=== PATIENT | male | born 1960 | race Caucasian/White ===

== ENCOUNTER 2024-09-10 07:48 | Inpatient (IN) | payer OTHER, SELFPAY ==
[2024-09-09 14:12] VITALS: BP 110/74; BMI 23.7
[2024-09-09 14:36] LABS: % Basophils 0.1 % (0-2); % Eosinophils 0.1 % (0-6); % Immature Granulocytes 0.7 % (0-0.5); % Lymphocytes 6.4 % (20.5-51.1); % Monocytes 10.9 % (1.7-9.3); % Neutrophils 81.8 % (42.2-75.2); Absolute Immature Granulocytes 0.1 10^3/uL (0-0.05); Absolute Lymphocytes 0.5 10^3/uL (1.2-3.4); Absolute Monocytes 0.8 10^3/uL (0.1-0.6); Absolute Neutrophils 6.2 10^3/uL (1.4-6.5); Hematocrit 29.6 % (39.0-52.0); Hemoglobin 10.3 g/dL (13.0-18.0); Mean Corp Hgb Conc. 34.8 g/dL (33.0-37.0); Mean Corpuscular Hgb 32.1 pg (27.0-31.0); Mean Corpuscular Volume 92.2 fL (80.0-94.0); Mean Platelet Volume 9.7 fL (7.4-10.4); Nucleated Red Blood Cells % 0 % (-); Platelet Count 131 10^3/uL (130-400); Red Blood Cell Count 3.21 10^6/uL (4.70-6.10); Red Cell Dist. Width 11.8 % (11.5-14.5); White Blood Cell Count 7.5 10^3/uL (4.8-10.8)
--- NOTE | 2024-09-09 14:38 | ED.GENMED ---
History of Present Illness
General
Chief Complaint: Weakness
Source: patient
Exam Limitations: none
Time Seen by Provider: 09/09/24 14:12
Nursing documentation reviewed up to this point in time: agreed with
History of Present Illness
History of Present Illness:
Patient is a 64-year-old male with past medical history of prostate cancer currently being treated [place] by Dr. Solo for bone cancer presents with pain to right groin since Friday. He was getting into bed and since then has had pain in
his right right hip groin area. He denies any trauma. Patient is currently on by Bicalutamide. He has had radiation in the past.
Patient does have pain all over as well from bony cancer. He is on chronic pain medicine.
reports patient is not been able to get out of bed because of pain in his right hip/groin region.
Past History
Past History
ED Past Medical History: Other (Lyme disease with complete heart block) and Other (Kidney stones, 'phlebitis')
ED Past Surgical History: Orthopedic
Social History
Tobacco: Former smoker
Alcohol: Chronic alcoholic
Drug: None
Personal:
Living: with family
Family History
Family History: Other (Noncontributory)
Review of Systems
Review of Systems
Allergies reviewed?: Yes
All Other Systems: ROS reviewed and negative except as documented in HPI and ROS
Constitutional: Reports no symptoms; Denies fever, fatigue or chills
Musculoskeletal: Reports other (right hip/groin pain )
Skin: Reports no symptoms
Neurological: Reports no symptoms
Psychiatric: Reports no symptoms
Phy Exam
General Physical Exam
General Presentation: no apparent distress
General age: appears stated age
General Skin: warm and dry
General Habitus: normal
General Mental: alert
General Hydration: appears well hydrated
Cardiovascular Exam
Cardiovascular Exam: regular rate/rhythm, no murmur and normal peripheral pulses
Pulmonary Exam
Pulmonary Exam: lungs clear and no respiratory distress
Neurological Exam
Neurological Exam: alert
Musculoskeletal Exam
Musculoskeletal Exam: other (FULL rom to right leg however pt c/o of discomfort )
Course
Orders/Labs/Results
Orders:
Orders
09/09/24 14:27
COVID-19 Antigen Urgent
Source: Nasal Swab
Complete Blood Count/With Diff Urgent
Comprehensive Metabolic Panel Urgent
Influenza A+B Rapid Molecular Urgent
PATRIC Source: Nasal Swab
Specimen Description:
09/09/24 14:31
Electrocardiogram (*1) Urgent
Reason for Study: Fatigue / Weakness
EKG- Treatment ONCE
09/09/24 15:09
Urinalysis Reflex To Culture Urgent
Date Specimen was Collected: 09/09/24
Time Specimen was Collected: 15:08
Urine Drug Abuse Screen Routine
Date Specimen was Collected: 09/09/24
Time Specimen was Collected: 15:04
Comment: added on to ED urine
Urine Microscopic Reflex Cult Urgent
Urine Culture Urgent
PATRIC Source: U
Specimen Description:
Date Specimen was Collected: 09/09/24
Time Specimen was Collected: 15:08
09/09/24 15:30
Femur, Right 2 View [CR Femur - Right Min 2 Vw] Urgent
Comment:
Reason For Exam: pain
Hip, Right 2-3 Views [CR Hip - RT w/wo Pel 2-3 Vw*] Urgent
Comment:
Reason For Exam: pain
Include a pelvis x-ray?: Yes
09/09/24 15:47
Nicotine [Nicoderm Transdermal] 7 mg TRANSDERM NOW STA
09/09/24 17:05
CT Pelvis W/o Iv Contrast Urgent
Comment:
Reason For Exam: pain right hip
09/09/24 19:25
Admit/Transfer Patient As Directed
Co-Sign Provider:
Level of Care: Observation services
Assign to:: Telemetry
Physician / Group: hospitalist
Diagnosis: ambulatory dysfunction
Reason for Telemetry: Other
Other Reason for Telemetry: msas
Date to Stop Telemetry: 09/11/24
Time to Stop Telemetry: 11:00
PRN Pain Medication Management As Directed
May give lesser potent ordered pain med per pt: Yes
preference::
Protocol:: Medication orders for pain may be administered in a
manner that supports deferring to patient preference
when the pt is:
- Requesting an ordered lesser potent pain medication.
Least to most potent pain medications are defined
as: acetaminophen < NSAID < tramadol < opioids
(morphine, oxycodone, hydromorphone).
- Requesting a lesser dose of the same medication IF
ORDERED.
- Requesting a less intrusive route of administration
if both routes are prescribed by the provider (PO <
IV).
09/09/24 19:26
Code Status As Directed
Resuscitation Status: Full Code
09/09/24 20:03
Oxycodone [Roxicodone] 5 mg PO Q4HPRN PRN
09/09/24 20:43
0.9% Sodium Chloride [Nss (Preservative Free)] See Protocol IV PRN PRN
Acetaminophen [Tylenol] 650 mg PO Q4HPRN PRN
Albuterol Nebs [Ventolin Nebules] 2.5 mg INH R Q4HPRN PRN
Apixaban [Eliquis] 5 mg PO BID
Bisacodyl [Dulcolax] 10 mg RECTAL [id number] PRN
Docusate W/Senna [Senokot-S] 1 tablet PO BIDPRN PRN
FOLic ACID [Folvite] 1 mg 0.9% Sodium Chloride 50 ml [Nss] 50 ml IV DAILYPRN
HYDROmorphone [Dilaudid] 0.5 mg IV Q4HPRN PRN
Lorazepam [Ativan] 1 mg IV Q1HPRN PRN
Lorazepam [Ativan] 1 mg PO Q2HPRN PRN
Lorazepam [Ativan] 2 mg IV Q1HPRN PRN
Ondansetron Injectable [Zofran] 4 mg IV Q6HPRN PRN
Polyethylene Glycol Powder [Miralax] 17 grams PO DAILYPRN PRN
Thiamine Injection 200 mg IV Q12
09/09/24 20:43
VTE Contraindication Routine
VTE Mechanical Device Contraindication: Medical Contraindication
Pharmocologic Contraindication: Medical Contraindication
Activity As Directed
Activity Level: With Assistance
Bedside Glucose Monitoring As Directed
Frequency: AC&HS
MSAS SCORE As Directed
MSAS Score 0-4: Repeat MSAS every 2 hours until 0-4 for three consecutive assessments, then every 4 hours x 48
hours.
MSAS Score 5-7: For MILD withdrawl symptoms. Repeat MSAS and RASS every 2 hours
MSAS Score 8-11: For MODERATE withdrawal symptoms. Repeat MSAS and RASS every 1 hour. Consider ICU or IMU
level of care.
MSAS Score > 11: For SEVERE withdrawal symptoms. Repeat MSAS and RASS every 1 hour. Notify provider, consider
ICU level of care.
MSAS Additional Instructions: If no improvement or no decrease in score from severe to moderate within 12
hours, consult psychiatry
MSAS Notify Provider: Notify provider if patient requires more than 10 mg of Lorazepam in eight hour period.
Vital Signs As Directed
Frequency: Per unit guidelines
09/10/24 06:00
Basic Metabolic Panel IN AM
Complete Blood Count/No Diff IN AM
Folate IN AM
Hemoglobin A1c [Glycohemoglobin (HgbA1c)] IN AM
Iron IN AM
Magnesium IN AM
Phosphorus IN AM
Total Iron Binding IN AM
Vitamin B12 IN AM
09/10/24 07:30
Insulin Aspart Corrective Low [Novolog Flexpen-Low Resistance] See Protocol SC AC
09/10/24 08:00
Bicalutamide [Casodex] 50 mg PO DAILY
FOLic ACID [Folvite] 1 mg PO DAILY
Lisinopril [Zestril] 5 mg PO DAILY
09/11/24 11:00
DC Protocol for Telemetry ONCE
09/12/24 20:00
Thiamine HCl [Vitamin B1] 100 mg PO BID
Abnormal Lab Results
09/09/24 09/09/24
14:27 15:09
RBC 3.21 L 10^6/uL
(4.70-6.10)
Hgb 10.3 L g/dL
(13.0-18.0)
Hct 29.6 L %
(39.0-52.0)
MCH 32.1 H pg
(27.0-31.0)
Abs Immat Gran (auto) 0.1 H 10^3/uL
(0-0.05)
Absolute Lymphs (auto) 0.5 L 10^3/uL
(1.2-3.4)
Absolute Monos (auto) 0.8 H 10^3/uL
(0.1-0.6)
Immature Gran % 0.7 H %
(0-0.5)
Neutrophils % 81.8 H %
(42.2-75.2)
Lymphocytes % 6.4 L %
(20.5-51.1)
Monocytes % 10.9 H %
(1.7-9.3)
Sodium 131 L mmol/L
(135-145)
Chloride 92 L mmol/L
(98-107)
Glucose 167 H mg/dl
(70-99)
Alkaline Phosphatase 206 H U/L
(38-126)
Urine Ketones 1+ A
(Negative)
Urine Bilirubin 1+ A
(Negative)
Urine Urobilinogen 3+ A
(Neg - 1+)
Leukocyte Esterase Rfl 1+ A
(Negative)
Urine WBC (Reflex) 11-15 A /HPF
(0-5)
Urine Bacteria (Reflex) Moderate A
(Negative)
Ur Oxycodone Screen Positive H
(Negative)
U Marijuana (THC) Screen Positive H
(Negative)
09/09/24 14:27
09/09/24 14:27
Vital Signs
Initial and Last Documented VS:
Initial Vital Signs
Temp Pulse Resp BP Pulse Ox
98.2 F 107 16 110/74 97
09/09/24 14:12 09/09/24 14:12 09/09/24 14:12 09/09/24 14:12 09/09/24 14:12
Last Documented Vital Signs
Temp Pulse Resp BP Pulse Ox
98.8 F 103 18 119/76 96
09/10/24 03:50 09/10/24 03:50 09/10/24 03:50 09/10/24 03:50 09/10/24 03:50
MDM/Problems Addressed
MDM/Problems Addressed:
Patient is a 64-year-old male with metastatic prostate cancer presents with pain to the right groin and hip. He was moving his leg in bed several days ago and had pain since not been able to bear weight. No obvious deformity mildly discomfort with
range of motion. X-rays questionable fracture upon my review as well as ED physician however formal report negative. Will obtain CAT scan as patient does complain of pain in has not been able to bear weight. Patient rest has not required any pain
medication here in the ER. He is afebrile.
He has pain at this time however with ambulatory dysfunction not being able to bear weight patient will require admission work. Case discussed with admitting hospitalist who is aware that CAT scan is pending
Chronic conditions affecting care:
Metastatic prostate cancer
*Critical Care Note
Total Time (30-74mins, 75-104mins- exclusive of procedures): Not Applicable
ED Attending Note
-
Portions of this chart may have been created with voice recognition software.� Occasional wrong word or��sound alike� substitutions may have occurred due to the inherent limitations of voice recognition software.
Discharge Plan
Departure
Patient Disposition: Admit
Date of Disposition: 09/09/24
Time of Disposition: 19:01
Admit to: Med/Surg
Admit to doctor: hospitalist
Presentation/result/management discussed w/ accepting MD/DO: Hospitalist
Patient with high blood pressure during this ER visit?: No
Condition: Fair
Covid-19: Not Applicable
Discharge Problem:
right hip pain, Ambulatory dysfunction
Interventions
Interventions:
*General Assessment Last Done: 09/09/24 14:12
*Neglect/Abuse Screening Last Done: 09/09/24 14:12
ED- Fall Risk Assessment Last Done: 09/09/24 14:34
*Nursing Disposition Last Done: 09/09/24 20:41
ED- Cardiac Assessment Last Done: 09/09/24 14:34
ED- Neurological Assessment Last Done: 09/09/24 14:34
ED- Pulmonary Assessment Last Done: 09/09/24 14:34
Discharge Date and Time
Discharge Date/Time: 09/09/24 20:41
[2024-09-09 14:52] LABS: COVID-19 Antigen Negative (Negative)
[2024-09-09 15:06] LABS: ALT (SGPT) 18 U/L (0-50); AST (SGOT) 45 U/L (17-59); Alkaline Phosphatase 206 U/L (38-126); Blood Urea Nitrogen 20 mg/dl (9-20); Calcium 8.5 mg/dl (8.4-10.2); Carbon Dioxide 28 mmol/L (22-30); Chloride 92 mmol/L (98-107); Estimated Creatinine Clearance 122 ml/min; Glucose 167 mg/dl (70-99); Potassium 4.5 mmol/L (3.5-5.1); Sodium 131 mmol/L (135-145); Total Bilirubin 1.2 mg/dl (0.2-1.3); Total Protein 6.4 g/dl (6.3-8.2); eGFR > 60.00
--- NOTE | 2024-09-09 15:14 | EDRN ---
Pts left P2 where pt is, and walked into remainder of ER, pts came back and states 'I count only 19 patients in this ER'. I informed pts that she needs to remain in pts room and she cannot go around the ER due to the safety and
privacy of other pts. surgery scheduler and security made aware who came to speak w pts . Pt instructed she must stay in pts room for other pts privacy.
[2024-09-09 15:23] LABS: Urine Albumin Trace (Neg - Trace); Urine Bilirubin 1+ (Negative); Urine Character Clear (Clear); Urine Color Yellow; Urine Glucose Negative (Negative); Urine Ketone 1+ (Negative); Urine Leukocyte 1+ (Negative); Urine Nitrite Negative (Negative); Urine Occult Blood Negative (Negative); Urine Urobilinogen 3+ (Neg - 1+)
[2024-09-09 15:39] LABS: Urine Mucus Moderate; Urine Squamous Cell 0-2 /LPF (Few)
[2024-09-09 15:40] LABS: Urine Bacteria Moderate (Negative); Urine Red Blood Cell 0-2 /HPF (0-2)
[2024-09-09] MEDS: NICODERM TRANSDERMAL 7 MG TRANSDERM (16:00)
[2024-09-09 16:45] VITALS: BP 107/56
--- NOTE | 2024-09-09 16:55 | EDRN ---
Pts coming out of the room multiple times and instructed to please stay in the pts room and not enter the triage area. Pts states 'The snow is getting bad and I'm leaving, he doesn't have his phone because its at home and I'm not
bringing it back for him. He will need a ride home if he is discharged and I'm not going to be able to pick him up. You need to order him an ambulance.' I explained the plan of care and awaiting results of tests to find out what the next step is,
does not want to wait. I explained to an ambulance may be able to be set up but unsure if it will be covered under insurance. states 'An ambulance shouldn't cost me a dime, we didn't have to pay anything when he went from [place] to
[place].' Pts left the ER.
[2024-09-09 19:09] VITALS: BP 117/90
--- NOTE | 2024-09-09 19:17 | HPS.HSE ---
Addendum entered and electronically signed by Kareem Good MD 09/10/24 06:58:
Informed significant order, Ms Abbasi, about the transfer. She would be coming to the hospital early this am to see him prior to the transfer.
Original Note:
Family Physician
-
Family Physician: Sofya Flaherty
Chief Complaint
-
Right-sided hip pain
History of Present Illness
This is a 64-year-old with past medical history significant for prostate cancer status post radiation with metastasis to bone status post multiple rounds of palliative radiation who presents to the emergency department with approximately 3 days of
right-sided hip pain.
Patient on chronic oxycodone. Reports that after moving in bed about 3 nights ago he started having groin pain. He reports the pain is localized to the right inner thigh and radiates down to the legs. No particular fall or injury noted. Denies
any swelling or redness. He reports mild tenderness to palpation. He denies any urinary symptoms including dysuria, hematuria, frequency or incontinence. He does report flank pain which has been chronic. He reports generalized pain that is
migratory in nature. He is currently on bicalutamide. Denies any fevers or chills. Denies any nausea vomiting or diarrhea.
In the emergency department he was afebrile, blood pressure was 107/50 with a pulse of 116 temp 98.2 satting 93% on room air. ECG with sinus tach at 105 and flattened T waves otherwise nonischemic. CBC is unremarkable with mild anemia to 10.3 and
platelet count of 130 but otherwise unremarkable. Sodium 131 electrolytes otherwise unremarkable. BUN/creatinine within normal range. UA mildly positive. Hip x-ray shows no dislocation or fractures. CT of the hip pending.
Medical History
Past Medical History
Past Medical History: Reports Cancer (Prostate cancer status post radiation, mets to bone), HTN and Other (Pulmonary embolism)
Past Surgical History: Reports None
Social History
Tobacco: Non-smoker
Alcohol: Daily
Drug: None
Personal:
Living: With Family
Family History
Family History: Not pertinent
Allergies / Home Medications
Allergies reflects when Allergies were last updated in [facility].
Home Medications with original date entered in [facility]
Allergy/Medication List:
Allergies
Allergy/AdvReac Type Severity Reaction Status Date / Time
Sulfa (Sulfonamide Allergy 'Blotches' Verified 09/09/24 14:23
Antibiotics)
Home Medications
acetaminophen 325 mg tablet 650 mg (2 x 325 mg) PO Q4HPRN PRN FEVER/PAIN ##0 04/01/14
Eliquis 5mg tablet, 5mg PO BID
Percocet 5/325 mg tablet, 1 tablet q 6 hours prn moderate pain
metformin 500mg tablet, 500mg po bid
bicalutamide 50mg tablet, 50mg po daily
Lisinopril 5mg tablet, 5mg po daily
Review of Systems
-
History Source: Patient
Constitutional: Reports No Symptoms
EENT: Reports No Symptoms
Respiratory: Reports No Symptoms
Cardiac: Reports No Symptoms
Abdomen/GI: Reports No Symptoms
: Reports No Symptoms
Musculoskeletal: Reports Joint Pain
Skin: Reports No Symptoms
Neurological: Reports No Symptoms
Hematologic/Lymphatic: Reports No Symptoms
Psych: Reports No Symptoms
Physical Exam
Vital Signs
Vital Signs
Temp Pulse Resp BP Pulse Ox
98.2 F 97 16 117/90 92
09/09/24 14:12 09/09/24 19:09 09/09/24 19:09 09/09/24 19:09 09/09/24 19:09
Physical Exam
General: Pain and Slurred Speech
HEENT: NormoCephalic, Anicteric, Moist mucous membranes and Atraumatic
Respiratory: Clear
Cardiac: S1/S2, Regular Rhythm and Tachycardia
Breast: Deferred by me
GI: Soft, Non Tender, Non Distended and Normal Bowel Sounds
Rectal: Deferred by Provider
Genito-urinary: Deferred by me
Musculoskeletal: No Clubbing, No Cyanosis and No Edema
Skin: Warm
Neuro: AO x 3 and Nonfocal/grossly intact
Hematologic/Lymphatic: No Lymphadenopathy
Psych: Calm
Laboratory Results
-
09/09/24 14:27
09/09/24 14:27
Laboratory Results
Total Bilirubin 1.2 mg/dl (0.2-1.3) 09/09/24 14:
AST 45 U/L (17-59) 09/09/24 14:
ALT 18 U/L (0-50) 09/09/24 14:
Alkaline Phosphatase 206 U/L (38-126) H 09/09/24 14:27
Data Reviewed
-
Diagnostic Radiology: Report Reviewed by me
Medical Tests (Nuc Med, Echo, EKG etc): Image Personally Visualized and interpreted
Old Records: Reviewed
Impression/Plan
-
IMPRESSION:
64 y.o male with h/o metastatic prostate cancer here with right groin/hip pain radiating to the legs that started abruptly about 3 nights previously without any known trauma. No weakness, numbness or tingling. No incontinence of the bladder or
bowel. History suggestive of radicular but cannot rule out occult fracture given metastatic prostate ca with bone mets. Unable to hold weight from pain.
Known slurred speech that started abruptly a few years ago. No diagnosis of stroke, ICH or IC mets. No known h/o seizures.
PLAN:
1. Hip pain w/ ambulatory dysfunction - Unclear etiology, radicular versus mets vs occult fracture.
- admit to obs
- CT hip pending -> {Pathologic avulsion fracture of the proximal right femur lesser trochanter. Associated soft tissue/intramuscular hematomas in the anterior right groin.}
- bedrest for now
- npo except meds, ortho consult
- pain control with dilaudid in addition to oral pain regimen
- PT eval
2. PE - prior VTE
- continue eliquis 5 bid
3. HTN
- patient reports lisinopril but unknown dose, will start at 5 pending further history from family
4. DM II - on metformin at home
- hold x 48 hours
- sliding scale for now
5. ETOH dependence - Has 3 shots daily. Also reports beer intake but does not specify. Denies prior withdrawal. Last drink today.
- low risk msas
- telemetry monitoring
6. Hyponatremia - Na 131. Suspect 2/2 etoh and pain. No evidence of hypovolemia on examination
- monitor for now
DVT PPX - on eliquis 5 bid
Code status - full code
Addendum -
D/W Dr. Kaplan of Orthopedics. He read the Ct scan and was concern for pathological fracture of the less trochanter as well as the femoral neck. Given history of metastatic prostate Ca to bone and prior radiation he thought ideally his oncologist
is working with an orthopaedic oncologist since he had known metastatic lesions in his proximal femur as well as numerous other locations. Treatment should be handled by an orthopedic oncologist. However patient has no clear history of orthopedic
oncologic f/u.
Recommends transfer to a center with an interdisciplinary oncology team that includes an orthopaedic oncologist because it goes beyond the scope of practice at .
- continue [id number] to the RLE
- transferred to [place] and accepted by Dr. REID, now awaiting a bed
- called to inform significant order but she was not available and no answering service provided
--- NOTE | 2024-09-09 20:03 | EDRN ---
Pt upset his urinal lid does not close, pt given a new urinal. Pt states 'you are late for my pain medicine, the black man said he I could get it and its your fault its late!' Pt agitated and thrashing himself in the bed. I informed pt that he has
no medications ordered on the ER side. I informed pt that I would look into it and see if I could process the transfer order for oxycodone.
[2024-09-09] MEDS: ROXICODONE 5 MG PO (20:12)
[2024-09-09 20:57] VITALS: BP 128/76
[2024-09-09 20:59] VITALS: BMI 23.2
[2024-09-09] MEDS: ELIQUIS 5 MG PO (21:32)
[2024-09-09] MEDS: THIAMINE INJECTION 200 MG IV (21:32)
[2024-09-09 21:47] LABS: Glucose - Point of Care 166 mg/dl (70-99)
[2024-09-09] MEDS: LR 1000 IV (22:13)
[2024-09-09] MEDS: DILAUDID 0.5 MG IV (22:25)
[2024-09-09 23:14] LABS: Amphetamines Negative (Negative); Barbiturates Negative (Negative); Benzodiazepines Negative (Negative); Buprenorphine Negative (Negative); Cocaine Negative (Negative); Marijuana Positive (Negative); Methadone Negative (Negative); Methamphetamines Negative (Negative); Opiates Negative (Negative); Phencyclidine Negative (Negative)
[2024-09-09 23:15] LABS: Tricyclic Antidepressants Negative (Negative)
[2024-09-09 23:40] VITALS: BP 109/78
[2024-09-09 23:46] LABS: Fentanyl, Urine Negative (Negative)
[2024-09-10 00:16] LABS: Glucose - Point of Care 247 mg/dl (70-99)
[2024-09-10] MEDS: NOVOLOG FLEXPEN-LOW RESISTANCE 2 UNITS SC (00:39)
--- NOTE | 2024-09-10 01:49 | PTCARENOTE ---
Updated report given to Jerman No bed at present . Will alert us when one is available.
[2024-09-10] MEDS: DILAUDID 0.5 MG IV ×2 (03:33→09:58)
[2024-09-10 03:50] VITALS: BP 119/76
[2024-09-10 06:07] LABS: Glucose - Point of Care 161 mg/dl (70-99)
[2024-09-10] MEDS: NOVOLOG FLEXPEN-LOW RESISTANCE 1 UNITS SC ×3 (06:11→17:49)
[2024-09-10 07:00] VITALS: BP 123/78
--- NOTE | 2024-09-10 08:26 | W.PN.UPDATE ---
Update Note
Progress Note Update
64-year-old male with history of metastatic cancer involving the bilateral proximal femur with acute onset of right hip pain after moving in bed. Radiographs show avulsion of the lesser trochanter and independent review of attending Dr. Kaplan
with impacted femoral neck fracture. Given the metastatic involvement of a pathologic fracture that may require fixation patient was recommended for transfer to a comprehensive oncologic care team including an orthopedic oncologist. Discussed with
patient who verified understanding. Nonweightbearing to right lower extremity; pending transfer
[2024-09-10] MEDS: FOLVITE 1 MG PO (08:27)
[2024-09-10] MEDS: ZESTRIL 5 MG PO (08:28)
[2024-09-10] MEDS: THIAMINE INJECTION 200 MG IV ×2 (08:28→21:17)
[2024-09-10] MEDS: CASODEX 50 MG PO (08:28)
[2024-09-10 08:44] LABS: Hemoglobin 9.9 g/dL (13.0-18.0); Mean Corp Hgb Conc. 35.4 g/dL (33.0-37.0); Mean Corpuscular Hgb 32.6 pg (27.0-31.0); Mean Corpuscular Volume 92.1 fL (80.0-94.0); Platelet Count 125 10^3/uL (130-400); Red Blood Cell Count 3.04 10^6/uL (4.70-6.10); Red Cell Dist. Width 12.1 % (11.5-14.5); White Blood Cell Count 5.9 10^3/uL (4.8-10.8)
[2024-09-10 09:25] LABS: Blood Urea Nitrogen 14 mg/dl (9-20); Calcium 9.1 mg/dl (8.4-10.2); Carbon Dioxide 27 mmol/L (22-30); Chloride 91 mmol/L (98-107); Estimated Creatinine Clearance > 125 ml/min; Glucose 167 mg/dl (70-99); Iron 47 ug/dl (49-181); Magnesium 1.3 mg/dl (1.6-2.3); Phosphorus 3.4 mg/dl (2.5-4.5); Potassium 4.1 mmol/L (3.5-5.1); Sodium 130 mmol/L (135-145); eGFR > 60.00
[2024-09-10 09:34] LABS: Percent Saturation 16 % (20-50); Total Iron Binding Capacity 286 ug/dl (261-462)
--- NOTE | 2024-09-10 10:06 | W.PN.HOSP.TC ---
Today's Communication/Plan
-
Transfer to [facility] when bed available
Assessment / Plan
Assessment / Plan
IMPRESSION:
64 y.o male with h/o metastatic prostate cancer here with right groin/hip pain radiating to the legs that started abruptly about 3 nights previously without any known trauma. No weakness, numbness or tingling. No incontinence of the bladder or
bowel. History suggestive of radicular but cannot rule out occult fracture given metastatic prostate ca with bone mets. Unable to hold weight from pain.
Known slurred speech that started abruptly a few years ago. No diagnosis of stroke, ICH or IC mets. No known h/o seizures.
PLAN:
Acute right hip pain with ambulatory dysfunction-nontraumatic
Patient with multiple bony mets from prostate cancer.
CT imaging shows an avulsion fracture of the right greater trochanter and as well as a impacted femoral neck fracture according to orthopedics.
Recommendation is for transfer to tertiary care center as it is best managed by oncologist orthopedic team. Patient has been accepted to [facility]-await bed availability.
Nonweightbearing on the right leg For now. Continue with pain management.
PE - prior VTE
-On eliquis 5 bid-on hold for surgery
HTN
- patient reports lisinopril but unknown dose, will start at 5 pending further history from family
DM II - on metformin at home
- hold metformin
- sliding scale for now
ETOH dependence - Has 3 shots daily. Also reports beer intake but does not specify. Denies prior withdrawal. Last drink today.
- low risk msas
- telemetry monitoring
-No evidence of alcohol withdrawal syndrome currently
Hyponatremia - Na 131. Suspect 2/2 etoh and pain. No evidence of hypovolemia on examination
- monitor for now
-Check urine lites and depending fluid restrict and treat
Hypomagnesemia-replete
DVT PPX -sequential teds
Code status - full code
Total time spent on today's encounter was 52 minutes which included time spent in counseling the patient/family regarding diagnosis and treatment plan as listed above, goals of care, and symptom management. Case was discussed with nursing staff,
specialists, and care coordinators/case management. All labs and imaging personally reviewed by me. Remainder the time spent in detailed review of previous records, lab data, imaging, and other medical provider documentation.
Addendum -
Dr Good D/W with Dr. Kaplan of Orthopedics. He read the Ct scan and was concern for pathological fracture of the less trochanter as well as the femoral neck. Given history of metastatic prostate Ca to bone and prior radiation he thought
ideally his oncologist is working with an orthopaedic oncologist since he had known metastatic lesions in his proximal femur as well as numerous other locations. Treatment should be handled by an orthopedic oncologist. However patient has no clear
history of orthopedic oncologic f/u.
Recommends transfer to a center with an interdisciplinary oncology team that includes an orthopaedic oncologist because it goes beyond the scope of practice at .
- continue [id number] to the RLE
- transferred to [place] and accepted by Dr. REID, now awaiting a bed
- called to inform significant order but she was not available and no answering service provided
Anticipated Discharge: Today
Subjective/Interval History
-
Date of Service: September 10, 2024
Patient with chronic pain from his bony mets ,on oral opiates at home now presented with a right hip fracture. Complains of moderate to severe pain from his right hip area. Currently getting IV Dilaudid.
Objective Data
-
Labs:
Laboratory Results
09/10/24
08:16
WBC 5.9
Hgb 9.9 L
Hct 28.0 L
Plt Count 125 L
Sodium 130 L
Potassium 4.1
Chloride 91 L
Carbon Dioxide 27
BUN 14
Creatinine 0.5 L
Glucose 167 H
Calcium 9.1
Vital Signs:
Vital Signs
Temp Pulse Resp BP Pulse Ox
99.8 F 104 18 123/78 95
09/10/24 07:00 09/10/24 07:00 09/10/24 07:00 09/10/24 07:00 09/10/24 07:00
I&O
09/09/24 09/10/24 09/11/24
06:59 06:59 06:59
Intake Total 800 / 800
Output Total 200 / 200
Balance 600 / 600
Review of Systems
-
Constitutional: Denies Fever
EENT: Denies Sore Throat
Respiratory: Denies Cough or Trouble Breathing
Cardiac: Reports Chest Pain (Bony mets)
Abdomen/GI: Denies Abdominal Pain, Nausea or Vomiting
Musculoskeletal: Reports Joint Pain (Back pain chronic)
Neuro: Denies Dizzy
Physical Exam
-
General: No Apparent Distress
HEENT: Moist Mucous Membranes
Respiratory: Clear to Auscultation (On anterior auscultation)
Cardiac: Regular Rhythm and S1/S2
GI: Soft, Nontender, Nondistended and Normal Bowel Sounds
Musculoskeletal: No Edema
Neuro: AO x 3
Psych: Calm
Data Reviewed
-
Labs: Labs Reviewed by me
[2024-09-10 10:09] LABS: Hepatitis C Antibody Negative (Negative)
[2024-09-10 10:26] LABS: Folate 18.5 ng/ml (2.76-20); Vitamin B12 546 pg/ml (239-931)
[2024-09-10 10:39] LABS: Glycohemoglobin (HgbA1c) 7.3 % (4.0-5.6)
[2024-09-10 11:00] VITALS: BP 115/76
[2024-09-10] MEDS: LR 1000 IV (11:38)
[2024-09-10] MEDS: MAGNESIUM SULFATE 50 IV (11:39)
[2024-09-10 11:59] LABS: Urine Sodium 41 mmol/L (30-90)
[2024-09-10 12:05] LABS: Glucose - Point of Care 194 mg/dl (70-99)
[2024-09-10 13:06] LABS: Osmolality Urine 564 mOsm/kg (300-900)
--- NOTE | 2024-09-10 14:24 | CM ---
Pt seen bedside. Initial assessment completed. Admitted for right-sided hip pain.
Pt reports that he lives w/ sig other and her son in a 3STH- 2 steps from the porch and 1 to enter in the home
Pt uses walker to ambulate. Has additional grab bars, shower chair and raised toilet seat in the bathroom for support
Pt recently at [facility] for rehab. Pt stated he only stayed for 2 hours as he did not like the facility and asked his sig other to pick him up.
Denies VN/PT, OP therapy in the past
Address, point of contact and insurance verified
PCP: Dr. Flaherty
Pharmacy: [facility]
Pt currently pending transfer to [facility] when bed available
Plan: Transfer to [facility] when bed is available
[2024-09-10 15:00] VITALS: BP 101/69
[2024-09-10] MEDS: NICODERM TRANSDERMAL 14 MG TRANSDERM (15:32)
[2024-09-10] MEDS: DILAUDID 1 MG IV ×2 (15:33→21:58)
[2024-09-10 17:27] LABS: Glucose - Point of Care 155 mg/dl (70-99)
[2024-09-10 19:00] VITALS: BP 110/75
[2024-09-10 22:07] LABS: Glucose - Point of Care 179 mg/dl (70-99)
[2024-09-10 23:00] VITALS: BP 101/67
[2024-09-11 03:00] VITALS: BP 123/71
[2024-09-11] MEDS: DILAUDID 1 MG IV ×4 (03:26→18:38)
[2024-09-11] MEDS: LR IV (03:33)
[2024-09-11 07:02] LABS: Hematocrit 27.8 % (39.0-52.0); Hemoglobin 9.6 g/dL (13.0-18.0); Mean Corp Hgb Conc. 34.5 g/dL (33.0-37.0); Mean Corpuscular Volume 92.7 fL (80.0-94.0); Mean Platelet Volume 9.8 fL (7.4-10.4); Platelet Count 137 10^3/uL (130-400)
[2024-09-11 07:22] LABS: Blood Urea Nitrogen 10 mg/dl (9-20); Calcium 8.8 mg/dl (8.4-10.2); Carbon Dioxide 32 mmol/L (22-30); Chloride 93 mmol/L (98-107); Estimated Creatinine Clearance > 125 ml/min; Glucose 166 mg/dl (70-99); Magnesium 1.4 mg/dl (1.6-2.3); Potassium 4.6 mmol/L (3.5-5.1); Sodium 133 mmol/L (135-145); eGFR > 60.00
[2024-09-11 07:30] VITALS: BP 110/76
[2024-09-11 07:35] LABS: Glucose - Point of Care 159 mg/dl (70-99)
[2024-09-11] MEDS: NICODERM TRANSDERMAL 14 MG TRANSDERM (08:21)
[2024-09-11] MEDS: CASODEX 50 MG PO (08:22)
[2024-09-11] MEDS: ZESTRIL 5 MG PO (08:22)
[2024-09-11] MEDS: FOLVITE 1 MG PO (08:22)
[2024-09-11] MEDS: THIAMINE INJECTION 200 MG IV ×2 (08:22→19:55)
[2024-09-11] MEDS: NOVOLOG FLEXPEN-LOW RESISTANCE 1 UNITS SC ×3 (08:23→18:04)
[2024-09-11 11:30] VITALS: BP 118/75
[2024-09-11 11:37] LABS: Glucose - Point of Care 166 mg/dl (70-99)
--- NOTE | 2024-09-11 11:37 | W.PN.HOSP.TC ---
Today's Communication/Plan
-
DC to [facility] when bed is available
Assessment / Plan
Assessment / Plan
IMPRESSION:
64 y.o male with h/o metastatic prostate cancer here with right groin/hip pain radiating to the legs that started abruptly about 3 nights previously without any known trauma. No weakness, numbness or tingling. No incontinence of the bladder or
bowel. History suggestive of radicular but cannot rule out occult fracture given metastatic prostate ca with bone mets. Unable to hold weight from pain.
Known slurred speech that started abruptly a few years ago. No diagnosis of stroke, ICH or IC mets. No known h/o seizures.
PLAN:
Acute right hip pain with ambulatory dysfunction-nontraumatic
Patient with multiple bony mets from prostate cancer.
CT imaging shows an avulsion fracture of the right greater trochanter and as well as a impacted femoral neck fracture according to orthopedics.
Recommendation is for transfer to tertiary care center as it is best managed by oncologist orthopedic team. Patient has been accepted to [facility]-await bed availability.
Nonweightbearing on the right leg For now. Continue with pain management. Had laxative regimen
PE - prior VTE
-On eliquis 5 bid-on hold for surgery
HTN
- patient reports lisinopril but unknown dose, will start at 5 pending further history from family
DM II - on metformin at home
- hold metformin
- sliding scale for now
ETOH dependence - Has 3 shots daily. Also reports beer intake but does not specify. Denies prior withdrawal. Last drink today.
- low risk msas
- telemetry monitoring
-No evidence of alcohol withdrawal syndrome currently
Hyponatremia - Na 131. Suspect 2/2 etoh and pain. No evidence of hypovolemia on examination
- monitor for now
- urine lites suggest presence of excessive ADH possibly from pain. Will place him on fluid restriction
DVT PPX -sequential teds
Code status - full code
Addendum -
Dr Good D/W with Dr. Kaplan of Orthopedics. He read the Ct scan and was concern for pathological fracture of the less trochanter as well as the femoral neck. Given history of metastatic prostate Ca to bone and prior radiation he thought
ideally his oncologist is working with an orthopaedic oncologist since he had known metastatic lesions in his proximal femur as well as numerous other locations. Treatment should be handled by an orthopedic oncologist. However patient has no clear
history of orthopedic oncologic f/u.
Recommends transfer to a center with an interdisciplinary oncology team that includes an orthopaedic oncologist because it goes beyond the scope of practice at .
- continue [id number] to the RLE
- transferred to [facility] and accepted by Dr. REID, now awaiting a bed
- called to inform significant order but she was not available and no answering service provided
Anticipated Discharge: Today
Subjective/Interval History
-
Date of Service: September 11, 2024
Pain from right leg persists and with increased dose of Dilaudid pills okay.
Constipated but passing gas. Hesitant to go on laxative regimen as he is concerned how is going to get on commode. advised to use bedpan but to go on laxative regimen to prevent complications of constipation.
Objective Data
-
Labs:
Laboratory Results
09/11/24
06:28
WBC 5.0
Hgb 9.6 L
Hct 27.8 L
Plt Count 137
Sodium 133 L
Potassium 4.6
Chloride 93 L
Carbon Dioxide 32 H
BUN 10
Creatinine 0.5 L
Glucose 166 H
Calcium 8.8
Vital Signs:
Vital Signs
Temp Pulse Resp BP Pulse Ox
98.6 F 99 16 110/76 95
09/11/24 07:30 09/11/24 07:30 09/11/24 07:30 09/11/24 07:30 09/11/24 07:30
I&O
09/10/24 09/11/24 09/12/24
06:59 06:59 06:59
Intake Total 800 / 800 600 / 600
Output Total 200 / 200 150 / 150
Balance 600 / 600 450 / 450
Review of Systems
-
Respiratory: Denies Trouble Breathing
Cardiac: Denies Chest Pain
Abdomen/GI: Denies Abdominal Pain, Nausea or Vomiting
Neuro: Denies Dizzy
Physical Exam
-
General: Comfortable
Respiratory: Non Labored Respirations; Negative Accessory Resp Muscle Use
Cardiac: Regular Rhythm and S1/S2
GI: Soft, Nontender, Nondistended and Normal Bowel Sounds
Neuro: AO x 3
Psych: Calm
Data Reviewed
-
Labs: Labs Reviewed by me
--- NOTE | 2024-09-11 12:10 | CM ---
CM reviewed chart, transfer to [facility] when bed becomes available.
Plan: Transfer to [facility] when bed is available
[2024-09-11 15:25] VITALS: BP 119/76
[2024-09-11 16:42] LABS: Glucose - Point of Care 154 mg/dl (70-99)
[2024-09-11 19:55] VITALS: BP 101/70
[2024-09-11 21:30] LABS: Glucose - Point of Care 220 mg/dl (70-99)
[2024-09-11] MEDS: ROXICODONE 10 MG PO (22:52)
[2024-09-11 23:47] VITALS: BP 104/69
[2024-09-12] MEDS: DILAUDID 1 MG IV (00:23)
== END 2024-09-12 00:35 | disposition short-term general hospital (02) | DRG 543 ==
LOC: 4 WEST ACU 07:48
PROVIDERS: Nurse Practitioner; ADMITTING PHYSICIAN Internal Medicine; ATTENDING PHYSICIAN Internal Medicine; EMERGENCY PHYSICIAN Emergency Medicine; FAMILY PHYSICIAN Family Medicine
DX: M84.551A Pathological fracture in neoplastic disease, right femur, initial encounter for fracture (principal); C79.51 Secondary malignant neoplasm of bone; E87.1 Hypo-osmolality and hyponatremia; I44.2 Atrioventricular block, complete; Z85.46 Personal history of malignant neoplasm of prostate; I10 Essential (primary) hypertension; E11.9 Type 2 diabetes mellitus without complications; Z79.84 Long term (current) use of oral hypoglycemic drugs; F10.20 Alcohol dependence, uncomplicated; I80.9 Phlebitis and thrombophlebitis of unspecified site; Z87.442 Personal history of urinary calculi; Z79.01 Long term (current) use of anticoagulants; Z86.711 Personal history of pulmonary embolism; Z86.718 Personal history of other venous thrombosis and embolism; Z87.891 Personal history of nicotine dependence; Z92.3 Personal history of irradiation; D63.0 Anemia in neoplastic disease
CPT/HCPCS: 72192; 73502; 73552; 80048; 80053; 80306; 80307; 81003; 81015; 82607; 82746; 82962; 83036; 83540; 83550; 83735; 83935; 84100; 84300; 85025; 85027; 86803; 87077; 87086; 87186; 87502; 87811; 93005; 99285

== ENCOUNTER → 2024-10-21 09:21 | Outpatient (REF) | payer OTHER, SELFPAY | LOC: PAVMRI 09:21 | PROVIDERS: ATTENDING PHYSICIAN Internal Medicine Medical Oncology; FAMILY PHYSICIAN Family Medicine; PRIMARYCARE PHYSICIAN Family Medicine | DX: C61 Malignant neoplasm of prostate (principal); C79.51 Secondary malignant neoplasm of bone; R51.9 Headache, unspecified | CPT/HCPCS: 70553; A9575 ==

== ENCOUNTER 2024-10-25 22:14 | Inpatient (IN) | payer OTHER, SELFPAY ==
[2024-10-25] VITALS (10 sets, daily range): BP systolic 100–159; BP diastolic 67–97; BMI 23.7; BMI 22.4
--- NOTE | 2024-10-25 17:01 | ED.GENMED ---
ED Provider Triage
<RADHA Jesus - Last Filed: 10/25/24 17:05>
-
Patient seen by provider in Triage?: Seen in Triage
Attestation: A medical screening examination has been initiated by a qualified medical provider. Based on the assessment performed at this time, it has been determined that an emergent medical condition may exist and the patient has been informed
that further medical evaluation and possible additional diagnostic testing may be needed.
HPI: Patient is a 64-year-old male who has a history of prostate cancer with known metastasis to the bone and was recently diagnosed with a brain mass. He is followed by [facility] and reports they were instructed to come to the ER for
steroids. Patient has had headaches and double vision.
GENERAL: Alert , in no apparent distress
EYE: No visual abnormalities.
NECK: Trachea midline
LUNGS: No acute respiratory distress
NEUROLOGICAL: Alert and oriented
SKIN: Skin intact. No visible changes.
MUSCULOSKELETAL: Moving extremities normally
PSYCH: Normal and appropriate interaction.
This is a medical evaluation conducted in person to initiate diagnostic evaluation and provide initial therapeutics. Please see further documentation by the treating clinician.
History of Present Illness
<RADHA Jesus - Last Filed: 10/25/24 17:05>
General
Chief Complaint: Headache
Time Seen by Provider: 10/25/24 17:24
<Odell Mcfarlane DO - Last Filed: 10/26/24 13:57>
General
Source: patient
History of Present Illness
History of Present Illness:
64-year-old male presents to the emergency room for headache. Patient has known prostatic cancer which is metastatic. He has multiple bony mets. He had an MRI performed on October 21 which showed a metastatic lesion to the clivus. His
oncologist suspects this is the reason for his headache. Patient also having some diplopia and extraocular movement abnormalities. Patient's oncologist recommended the patient come to the emergency room today to start pain control with the
ultimate plan of radiation treatment.
Past History
<RADHA Jesus - Last Filed: 10/25/24 17:05>
Past History
ED Past Medical History: Other (Lyme disease with complete heart block) and Other (Kidney stones, 'phlebitis')
ED Past Surgical History: Orthopedic
Social History
Tobacco: Former smoker
Alcohol: Chronic alcoholic
Drug: None
Personal:
Living: with family
Family History
Family History: Other (Noncontributory)
Phy Exam
<Odell Mcfarlane DO - Last Filed: 10/26/24 13:57>
Physical Exam
Physical Exam:
General: Awake, Alert, Oriented X3. No acute distress, appears chroniclly ill
Vitals: unremarkable
Head: Atraumatic
Eyes: Pupils equal
Throat: Airway intact, no exudates
Neck: Trachea midline
Lungs: Clear and equal b/l
Heart: Regular rate, no murmurs
Abd: Soft, Nontender, No pulsatile mass
Neuro: extropia left eye with binocular vision improves with eye patch on right eye. Left eyelid difficult to raise.
Skin: Warm, dry, no rash
Extremities: pulses equal b/l, no edema
Course
<RADHA Jesus - Last Filed: 10/25/24 17:05>
Orders/Labs/Results
Orders:
Orders
10/25/24 Dinner
Regular
At Your Request: Full Participation
10/25/24 17:05
Nicotine [Nicoderm Transdermal] 14 mg TRANSDERM NOW STA
10/25/24 17:46
HYDROmorphone [Dilaudid] 0.5 mg IV NOW STA
10/25/24 18:03
Alcohol Urgent
B-Hydroxybutyrate Urgent
Comment: ADDON
Basic Metabolic Panel Urgent
Complete Blood Count/With Diff Urgent
GGTP Urgent
Magnesium Urgent
Comment: ADDON
Phosphorus Urgent
Comment: ADDON
10/25/24 19:08
HYDROmorphone [Dilaudid] 1 mg IV NOW STA
10/25/24 19:18
Dexamethasone Sod Phosphate [Decadron] 4 mg IV NOW STA
10/25/24 20:28
DIETARY CONSULT Routine
Reason for Consult: Nutrition support, possible refeeding guidelines
Urinalysis Routine
Date Specimen was Collected: 10/26/24
Time Specimen was Collected: 04:49
Urine Drug Abuse Screen Routine
Date Specimen was Collected: 10/26/24
Time Specimen was Collected: 04:49
0.9% Sodium Chloride [Nss (Preservative Free)] See Protocol IV PRN PRN
FOLic ACID [Folvite] 1 mg 0.9% Sodium Chloride 50 ml [Nss] 50 ml IV DAILYPRN
Lorazepam [Ativan] 1 mg IV Q1HPRN PRN
Lorazepam [Ativan] 1 mg PO Q2HPRN PRN
Lorazepam [Ativan] 2 mg IV Q1HPRN PRN
MSAS SCORE As Directed
MSAS Score 0-4: Repeat MSAS every 2 hours until 0-4 for three consecutive assessments, then every 4 hours x 48
hours.
MSAS Score 5-7: For MILD withdrawl symptoms. Repeat MSAS and RASS every 2 hours
MSAS Score 8-11: For MODERATE withdrawal symptoms. Repeat MSAS and RASS every 1 hour. Consider ICU or IMU
level of care.
MSAS Score > 11: For SEVERE withdrawal symptoms. Repeat MSAS and RASS every 1 hour. Notify provider, consider
ICU level of care.
MSAS Additional Instructions: If no improvement or no decrease in score from severe to moderate within 12
hours, consult psychiatry
MSAS Notify Provider: Notify provider if patient requires more than 10 mg of Lorazepam in eight hour period.
10/25/24 21:28
Admit/Transfer Patient As Directed
Co-Sign Provider:
Level of Care: Inpatient admission
Assign to:: Telemetry
Physician / Group: eddi hicks
Diagnosis: intract h/a, double vision, brain lesion Mri, known prostate ca with mets
Reason for Telemetry: Arrhythmia
Date to Stop Telemetry: 10/28/24
Time to Stop Telemetry: 11:00
Reason for Hospitalization: intract h/a, double vision, brain lesion Mri, known prostate ca with mets
Expected length of stay greater than two midnights?: Yes
ELOS- Estimated Length of Stay in days: 3
I certify the patient meets the requirements for IP care: Yes
10/25/24 21:30
Code Status As Directed
Resuscitation Status: Full Code
10/25/24 21:35
PRN Pain Medication Management As Directed
May give lesser potent ordered pain med per pt: Yes
preference::
Protocol:: Medication orders for pain may be administered in a
manner that supports deferring to patient preference
when the pt is:
- Requesting an ordered lesser potent pain medication.
Least to most potent pain medications are defined
as: acetaminophen < NSAID < tramadol < opioids
(morphine, oxycodone, hydromorphone).
- Requesting a lesser dose of the same medication IF
ORDERED.
- Requesting a less intrusive route of administration
if both routes are prescribed by the provider (PO <
IV).
10/25/24 22:00
Flush (0.9% Sodium Chloride) [Flush (Nss)] See Dose Instructions IV PER PROTOCOL
10/25/24 22:50
Acetaminophen [Tylenol] 650 mg PO Q4HPRN PRN
Bisacodyl [Dulcolax] 10 mg RECTAL [id number] PRN
Ondansetron Injectable [Zofran] 4 mg IV Q6HPRN PRN
Polyethylene Glycol Powder [Miralax] 17 grams PO DAILYPRN PRN
10/25/24 22:50
Activity As Directed
Activity Level: With Assistance
Intake/ Output As Directed
Frequency: Per unit guidelines
Vital Signs As Directed
Frequency: Per unit guidelines
Ot Eval And Treat Routine
Pt Eval And Treat Routine
Treatment: Uses rollator at baseline
Activity Level: With Assistance
DX Deep Vein Thrombosis Video Routine
10/25/24 22:58
HYDROmorphone [Dilaudid] 1 mg IV Q4HPRN PRN
10/26/24 00:00
Thiamine Injection 200 mg IV Q8
10/26/24 05:36
Complete Blood Count/With Diff IN AM
Comprehensive Metabolic Panel IN AM
10/26/24 08:00
Apixaban [Eliquis] 5 mg PO BID
Ascorbic Acid [Vitamin C] 500 mg PO BID
Bicalutamide [Casodex] 50 mg PO DAILY
Calcium Carbonate [Oscal Francisco Javier 500] 500 mg PO DAILY
FOLic ACID [Folvite] 1 mg PO DAILY
Lisinopril [Zestril] 2.5 mg PO DAILY
thiamine HCl (vitamin B1) 100 mg PO DAILY
10/27/24 06:00
Complete Blood Count/With Diff IN AM
Comprehensive Metabolic Panel IN AM
10/28/24 06:00
Complete Blood Count/With Diff IN AM
Comprehensive Metabolic Panel IN AM
10/28/24 11:00
DC Protocol for Telemetry ONCE
10/29/24 06:00
Complete Blood Count/With Diff IN AM
Comprehensive Metabolic Panel IN AM
10/29/24 08:00
Thiamine HCl [Vitamin B1] 100 mg PO BID
Abnormal Lab Results
10/25/24
18:03
RBC 3.66 L 10^6/uL
(4.70-6.10)
Hgb 11.6 L g/dL
(13.0-18.0)
Hct 34.4 L %
(39.0-52.0)
MCH 31.7 H pg
(27.0-31.0)
Abs Immat Gran (auto) 0.1 H 10^3/uL
(0-0.05)
Absolute Lymphs (auto) 0.4 L 10^3/uL
(1.2-3.4)
Absolute Monos (auto) 0.7 H 10^3/uL
(0.1-0.6)
Immature Gran % 1.0 H %
(0-0.5)
Neutrophils % 82.4 H %
(42.2-75.2)
Lymphocytes % 5.9 L %
(20.5-51.1)
Monocytes % 10.5 H %
(1.7-9.3)
Creatinine 0.5 L mg/dL
(0.7-1.3)
Glucose 177 H mg/dl
(70-99)
Magnesium 1.5 L mg/dl
(1.6-2.3)
B-Hydroxybutyrate 0.32 H mmol/L
(0.02-0.27)
10/25/24 18:03
10/25/24 18:03
Vital Signs
Initial and Last Documented VS:
Initial Vital Signs
Temp Pulse Resp BP Pulse Ox
98.2 F 110 16 100/67 98
10/25/24 16:53 10/25/24 16:53 10/25/24 16:53 10/25/24 16:53 10/25/24 16:53
Last Documented Vital Signs
Temp Pulse Resp BP Pulse Ox
97.8 F 91 17 127/81 97
10/26/24 11:15 10/26/24 11:15 10/26/24 11:15 10/26/24 11:15 10/26/24 11:15
[place];Odell Mcfarlane, DO - Last Filed: 10/26/24 13:57>
Orders/Labs/Results
Orders:
Orders
10/25/24 Dinner
Regular
At Your Request: Full Participation
10/25/24 17:05
Nicotine [Nicoderm Transdermal] 14 mg TRANSDERM NOW STA
10/25/24 17:46
HYDROmorphone [Dilaudid] 0.5 mg IV NOW STA
10/25/24 18:03
Alcohol Urgent
B-Hydroxybutyrate Urgent
Comment: ADDON
Basic Metabolic Panel Urgent
Complete Blood Count/With Diff Urgent
GGTP Urgent
Magnesium Urgent
Comment: ADDON
Phosphorus Urgent
Comment: ADDON
10/25/24 19:08
HYDROmorphone [Dilaudid] 1 mg IV NOW STA
10/25/24 19:18
Dexamethasone Sod Phosphate [Decadron] 4 mg IV NOW STA
10/25/24 20:28
DIETARY CONSULT Routine
Reason for Consult: Nutrition support, possible refeeding guidelines
Urinalysis Routine
Date Specimen was Collected: 10/26/24
Time Specimen was Collected: 04:49
Urine Drug Abuse Screen Routine
Date Specimen was Collected: 10/26/24
Time Specimen was Collected: 04:49
0.9% Sodium Chloride [Nss (Preservative Free)] See Protocol IV PRN PRN
FOLic ACID [Folvite] 1 mg 0.9% Sodium Chloride 50 ml [Nss] 50 ml IV DAILYPRN
Lorazepam [Ativan] 1 mg IV Q1HPRN PRN
Lorazepam [Ativan] 1 mg PO Q2HPRN PRN
Lorazepam [Ativan] 2 mg IV Q1HPRN PRN
MSAS SCORE As Directed
MSAS Score 0-4: Repeat MSAS every 2 hours until 0-4 for three consecutive assessments, then every 4 hours x 48
hours.
MSAS Score 5-7: For MILD withdrawl symptoms. Repeat MSAS and RASS every 2 hours
MSAS Score 8-11: For MODERATE withdrawal symptoms. Repeat MSAS and RASS every 1 hour. Consider ICU or IMU
level of care.
MSAS Score > 11: For SEVERE withdrawal symptoms. Repeat MSAS and RASS every 1 hour. Notify provider, consider
ICU level of care.
MSAS Additional Instructions: If no improvement or no decrease in score from severe to moderate within 12
hours, consult psychiatry
MSAS Notify Provider: Notify provider if patient requires more than 10 mg of Lorazepam in eight hour period.
10/25/24 21:28
Admit/Transfer Patient As Directed
Co-Sign Provider:
Level of Care: Inpatient admission
Assign to:: Telemetry
Physician / Group: edid hicks
Diagnosis: intract h/a, double vision, brain lesion Mri, known prostate ca with mets
Reason for Telemetry: Arrhythmia
Date to Stop Telemetry: 10/28/24
Time to Stop Telemetry: 11:00
Reason for Hospitalization: intract h/a, double vision, brain lesion Mri, known prostate ca with mets
Expected length of stay greater than two midnights?: Yes
ELOS- Estimated Length of Stay in days: 3
I certify the patient meets the requirements for IP care: Yes
10/25/24 21:30
Code Status As Directed
Resuscitation Status: Full Code
10/25/24 21:35
PRN Pain Medication Management As Directed
May give lesser potent ordered pain med per pt: Yes
preference::
Protocol:: Medication orders for pain may be administered in a
manner that supports deferring to patient preference
when the pt is:
- Requesting an ordered lesser potent pain medication.
Least to most potent pain medications are defined
as: acetaminophen < NSAID < tramadol < opioids
(morphine, oxycodone, hydromorphone).
- Requesting a lesser dose of the same medication IF
ORDERED.
- Requesting a less intrusive route of administration
if both routes are prescribed by the provider (PO <
IV).
10/25/24 22:00
Flush (0.9% Sodium Chloride) [Flush (Nss)] See Dose Instructions IV PER PROTOCOL
10/25/24 22:50
Acetaminophen [Tylenol] 650 mg PO Q4HPRN PRN
Bisacodyl [Dulcolax] 10 mg RECTAL [id number] PRN
Ondansetron Injectable [Zofran] 4 mg IV Q6HPRN PRN
Polyethylene Glycol Powder [Miralax] 17 grams PO DAILYPRN PRN
10/25/24 22:50
Activity As Directed
Activity Level: With Assistance
Intake/ Output As Directed
Frequency: Per unit guidelines
Vital Signs As Directed
Frequency: Per unit guidelines
Ot Eval And Treat Routine
Pt Eval And Treat Routine
Treatment: Uses rollator at baseline
Activity Level: With Assistance
DX Deep Vein Thrombosis Video Routine
10/25/24 22:58
HYDROmorphone [Dilaudid] 1 mg IV Q4HPRN PRN
10/26/24 00:00
Thiamine Injection 200 mg IV Q8
10/26/24 05:36
Complete Blood Count/With Diff IN AM
Comprehensive Metabolic Panel IN AM
10/26/24 08:00
Apixaban [Eliquis] 5 mg PO BID
Ascorbic Acid [Vitamin C] 500 mg PO BID
Bicalutamide [Casodex] 50 mg PO DAILY
Calcium Carbonate [Oscal Francisco Javier 500] 500 mg PO DAILY
FOLic ACID [Folvite] 1 mg PO DAILY
Lisinopril [Zestril] 2.5 mg PO DAILY
thiamine HCl (vitamin B1) 100 mg PO DAILY
10/27/24 06:00
Complete Blood Count/With Diff IN AM
Comprehensive Metabolic Panel IN AM
10/28/24 06:00
Complete Blood Count/With Diff IN AM
Comprehensive Metabolic Panel IN AM
10/28/24 11:00
DC Protocol for Telemetry ONCE
10/29/24 06:00
Complete Blood Count/With Diff IN AM
Comprehensive Metabolic Panel IN AM
10/29/24 08:00
Thiamine HCl [Vitamin B1] 100 mg PO BID
Abnormal Lab Results
10/25/24
18:03
RBC 3.66 L 10^6/uL
(4.70-6.10)
Hgb 11.6 L g/dL
(13.0-18.0)
Hct 34.4 L %
(39.0-52.0)
MCH 31.7 H pg
(27.0-31.0)
Abs Immat Gran (auto) 0.1 H 10^3/uL
(0-0.05)
Absolute Lymphs (auto) 0.4 L 10^3/uL
(1.2-3.4)
Absolute Monos (auto) 0.7 H 10^3/uL
(0.1-0.6)
Immature Gran % 1.0 H %
(0-0.5)
Neutrophils % 82.4 H %
(42.2-75.2)
Lymphocytes % 5.9 L %
(20.5-51.1)
Monocytes % 10.5 H %
(1.7-9.3)
Creatinine 0.5 L mg/dL
(0.7-1.3)
Glucose 177 H mg/dl
(70-99)
Magnesium 1.5 L mg/dl
(1.6-2.3)
B-Hydroxybutyrate 0.32 H mmol/L
(0.02-0.27)
10/25/24 18:03
10/25/24 18:03
Vital Signs
Initial and Last Documented VS:
Initial Vital Signs
Temp Pulse Resp BP Pulse Ox
98.2 F 110 16 100/67 98
10/25/24 16:53 10/25/24 16:53 10/25/24 16:53 10/25/24 16:53 10/25/24 16:53
Last Documented Vital Signs
Temp Pulse Resp BP Pulse Ox
97.8 F 91 17 127/81 97
10/26/24 11:15 10/26/24 11:15 10/26/24 11:15 10/26/24 11:15 10/26/24 11:15
<Odell Mcfarlane DO - Last Filed: 10/26/24 13:57>
MDM/Problems Addressed
Differential Diagnosis Includes:
Uncontrolled cancer pain, vasogenic edema from mass
MDM/Problems Addressed:
Patient presents with significant headache. He has a bony metastasis noted in the clival region. Analgesia provided here. Case discussed briefly with neurosurgery who felt this was more of a radiation oncology question as he is not a surgical
candidate. I did contact the patient's oncologist. He had nothing further to add. Will hospitalize the patient with the primary goal being pain control. I am not sure if radiation oncology will see the patient in the hospital and do radiation
therapy while the patient is hospitalized but we can get this process started.
<Odell Mcfarlane DO - Last Filed: 10/26/24 13:57>
*Pulse Oximetry
Patient hypoxic: no
*Critical Care Note
Total Time (30-74mins, 75-104mins- exclusive of procedures): Not Applicable
ED Attending Note
<RADHA Jesus - Last Filed: 10/25/24 17:05>
-
Portions of this chart may have been created with voice recognition software.� Occasional wrong word or��sound alike� substitutions may have occurred due to the inherent limitations of voice recognition software.
Discharge Plan
Departure
Patient Disposition: Admit
Date of Disposition: 10/25/24
Time of Disposition: 19:21
Admit to: Med/Surg
Presentation/result/management discussed w/ accepting MD/DO: Hospitalist
Condition: Fair
Discharge Problem:
Headache, clival mass, Prostate cancer metastatic to bone
Interventions
Interventions:
*Risk Screen - Suicide Last Done: 10/26/24 00:03
*General Assessment Last Done: 10/25/24 17:50
*Neglect/Abuse Screening Last Done: 10/25/24 16:53
*ED- Fall Risk Assessment Last Done: 10/25/24 17:51
*ED COVID-19 Vaccine History Last Done: 10/26/24 00:03
*Nursing Disposition Last Done: 10/25/24 22:45
ED- Neurological Assessment Last Done: 10/25/24 17:52
Discharge Date and Time
Discharge Date/Time: 10/25/24 22:45
[2024-10-25] MEDS: NICODERM TRANSDERMAL 14 MG TRANSDERM (17:08)
--- NOTE | 2024-10-25 17:39 | EDRN ---
Dr. Mcfarlane in room w/pt and spouse at this time.
[2024-10-25] MEDS: DILAUDID 0.5 MG IV (18:06)
[2024-10-25 18:14] LABS: % Basophils 0.2 % (0-2); % Lymphocytes 5.9 % (20.5-51.1); % Monocytes 10.5 % (1.7-9.3); % Neutrophils 82.4 % (42.2-75.2); Absolute Immature Granulocytes 0.1 10^3/uL (0-0.05); Absolute Lymphocytes 0.4 10^3/uL (1.2-3.4); Absolute Monocytes 0.7 10^3/uL (0.1-0.6); Absolute Neutrophils 5.2 10^3/uL (1.4-6.5); Hematocrit 34.4 % (39.0-52.0); Hemoglobin 11.6 g/dL (13.0-18.0); Mean Corp Hgb Conc. 33.7 g/dL (33.0-37.0); Mean Corpuscular Hgb 31.7 pg (27.0-31.0); Nucleated Red Blood Cells % 0 % (-); Platelet Count 216 10^3/uL (130-400); Red Blood Cell Count 3.66 10^6/uL (4.70-6.10); White Blood Cell Count 6.3 10^3/uL (4.8-10.8)
[2024-10-25 18:33] LABS: Blood Urea Nitrogen 14 mg/dl (9-20); Calcium 9.8 mg/dl (8.4-10.2); Carbon Dioxide 23 mmol/L (22-30); Chloride 99 mmol/L (98-107); Estimated Creatinine Clearance > 125 ml/min; Glucose 177 mg/dl (70-99); Potassium 3.8 mmol/L (3.5-5.1); Sodium 139 mmol/L (135-145); eGFR > 60.00
[2024-10-25] MEDS: DILAUDID 1 MG IV ×2 (19:32→23:45)
[2024-10-25] MEDS: DECADRON 4 MG IV (19:35)
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
[2024-10-25 21:26] LABS: Alcohol 81 mg/dl; GGTP 67 U/L (15-73); Magnesium 1.5 mg/dl (1.6-2.3); Phosphorus 3.6 mg/dl (2.5-4.5)
[2024-10-25 21:32] LABS: B-Hydroxybutyrate 0.32 mmol/L (0.02-0.27)
[2024-10-25 23:40] LABS: Glucose - Point of Care 208 mg/dl (70-99)
[2024-10-25] MEDS: THIAMINE INJECTION 200 MG IV (23:45)
[2024-10-26] MEDS: ELIQUIS 5 MG PO ×2 (00:43→08:50)
--- NOTE | 2024-10-26 00:58 | PTCARENOTE ---
Patient arrived from the ED via stretcher at approximately 2250. Patient pulled over from stretcher to bed x2 assist w/ no event. Patient AAOx3, forgetful/anxious @ times. VSS as documented. Assessment as documented. Patient oriented to room. Bed in
lowest position. Call kirk within reach.
--- NOTE | 2024-10-26 01:43 | W.PN.UPDATE ---
Update Note
Progress Note Update
Patient seen in conjunction with [facility]. I agree with the findings on history and physical. I concur with the assessment and plan.
Briefly, this is a 64-year-old male with past medical history significant for metastatic prostate cancer w/ bony mets status post radiation in the past, history of PE currently on apixaban, steroid-induced diabetes and hypertension presenting to the
emergency department with recently diagnosed with a brain mass. He is followed by [facility] and reports they were instructed to come to the ER for steroids. Patient has had headaches and double vision.
Patient has hx of prostate cancer and was initially managed at but as since transferred care and has recieved radiation at [facility] most recently. He had headaches for about 6 weeks. Denies double vision to us but significant other endorsed the
double vision.
Seen here last month for ambulatory dysfunction and right groin/hip pain with imaging showing avulsion fracture of the right greater trochanter as well as impacted femoral neck fracture where he was ultimately transferred [facility] for
treatment.
Saw oncologist Dr. Lee who practices in [place]. She and the patient saw him in the office on 10/15 and he ordered the MRI. They were called today and referred to go to [facility] for treatment due to a brain mass. Patient and
S/O however refused to go to [place] due to inconvenience of the trip and came to instead. Similarly they preferred no to go to [facility]. Willing to see [facility] here.
The MRi shows a large heterogeneously enhancing clival osseous metastasis measuring approximately 2.8 x 2.6 x 2.6 cm, new from prior. No midline shift, truncal herniation or changes in ventricle size. No bleeding.
We attempted to find a local radiation oncologist at but to no avail.
Admit to med/surg
- IV decadron
- pain control
- continue apixaban
- monitor and treat for hyperglycemia with sliding scale insulin
- consult to oncology
ETOH - Some of the balance issues may be due to etoh dependence. ETOH level +
-MSAs screen with protocol
-IV thiamine, IV folate
Full Code
[2024-10-26 03:49] VITALS: BP 138/85
[2024-10-26] MEDS: DILAUDID 1 MG IV ×3 (03:55→14:37)
[2024-10-26 06:39] LABS: % Basophils 0.2 % (0-2); % Immature Granulocytes 0.6 % (0-0.5); % Lymphocytes 5.1 % (20.5-51.1); % Neutrophils 91.1 % (42.2-75.2); Absolute Lymphocytes 0.3 10^3/uL (1.2-3.4); Absolute Monocytes 0.2 10^3/uL (0.1-0.6); Absolute Neutrophils 5.7 10^3/uL (1.4-6.5); Hematocrit 36.4 % (39.0-52.0); Hemoglobin 12.4 g/dL (13.0-18.0); Mean Corp Hgb Conc. 34.1 g/dL (33.0-37.0); Mean Corpuscular Volume 93.8 fL (80.0-94.0); Mean Platelet Volume 9.6 fL (7.4-10.4); Nucleated Red Blood Cells % 0 % (-); Platelet Count 247 10^3/uL (130-400); Red Blood Cell Count 3.88 10^6/uL (4.70-6.10); White Blood Cell Count 6.3 10^3/uL (4.8-10.8)
[2024-10-26 06:53] LABS: ALT (SGPT) 12 U/L (0-50); AST (SGOT) 23 U/L (17-59); Albumin 3.7 g/dl (3.5-5.0); Alkaline Phosphatase 201 U/L (38-126); Blood Urea Nitrogen 13 mg/dl (9-20); Calcium 9.8 mg/dl (8.4-10.2); Carbon Dioxide 26 mmol/L (22-30); Chloride 96 mmol/L (98-107); Estimated Creatinine Clearance > 125 ml/min; Glucose 210 mg/dl (70-99); Potassium 4.8 mmol/L (3.5-5.1); Sodium 135 mmol/L (135-145); Total Bilirubin 0.7 mg/dl (0.2-1.3); Total Protein 6.8 g/dl (6.3-8.2); eGFR > 60.00
[2024-10-26 07:10] LABS: Urine Albumin 1+ (Neg - Trace); Urine Bilirubin Negative (Negative); Urine Character Clear (Clear); Urine Color Yellow; Urine Glucose Negative (Negative); Urine Ketone 3+ (Negative); Urine Leukocyte Negative (Negative); Urine Nitrite Negative (Negative); Urine Occult Blood 2+ (Negative); Urine Urobilinogen 2+ (Neg - 1+)
[2024-10-26 07:18] LABS: Urine Bacteria Few (Negative); Urine Mucus Few; Urine White Cell 0-2 /HPF (0-5)
[2024-10-26 07:23] LABS: Amphetamines Negative (Negative); Barbiturates Negative (Negative); Benzodiazepines Negative (Negative); Buprenorphine Negative (Negative); Cocaine Negative (Negative); Marijuana Positive (Negative); Methadone Negative (Negative); Methamphetamines Negative (Negative); Opiates Positive (Negative); Phencyclidine Negative (Negative); Tricyclic Antidepressants Negative (Negative)
[2024-10-26 07:34] LABS: Hepatitis C Antibody Negative (Negative)
[2024-10-26 07:47] LABS: Fentanyl, Urine Negative (Negative)
[2024-10-26 07:49] VITALS: BP 142/82
[2024-10-26 07:49] LABS: Glucose - Point of Care 193 mg/dl (70-99)
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
[2024-10-26] MEDS: OSCAL CAL 500 500 MG PO (08:48)
[2024-10-26] MEDS: FOLVITE 1 MG PO (08:48)
[2024-10-26] MEDS: VITAMIN C 500 MG PO (08:48)
[2024-10-26] MEDS: THIAMINE INJECTION 200 MG IV ×2 (08:50→15:39)
[2024-10-26] MEDS: ZESTRIL 2.5 MG PO (08:53)
[2024-10-26 09:17] LABS: Glycohemoglobin (HgbA1c) 6.3 % (4.0-5.6)
[2024-10-26] MEDS: CASODEX 50 MG PO (09:37)
[2024-10-26] MEDS: NOVOLOG FLEXPEN-LOW RESISTANCE 1 UNITS SC (09:38)
[2024-10-26] MEDS: PROTONIX 40 MG PO (10:31)
[2024-10-26] MEDS: DECADRON 4 MG PO (10:31)
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
[2024-10-26 11:15] VITALS: BP 127/81
[2024-10-26 11:48] VITALS: BP 149/94; PULSE 130; PULSE 98; O2SAT 98
[2024-10-26 11:49] VITALS: BP 149/94; PULSE 97; O2SAT 97
[2024-10-26] MEDS: NOVOLOG FLEXPEN-LOW RESISTANCE 2 UNITS SC (12:53)
[2024-10-26 12:54] LABS: Glucose - Point of Care 217 mg/dl (70-99)
--- NOTE | 2024-10-26 13:21 | W.PN.UPDATE ---
Update Note
Progress Note Update
Patient accepted to [facility], signout provided
[2024-10-26 15:23] VITALS: BP 127/82
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
--- NOTE | 2024-10-26 16:07 | CM ---
Patient met with patient at bedside.
IMM explained & signed. In chart
Patient to be transferred to [facility]
PLAN: Transfer to [facility]
ambulance forms on chart
== END 2024-10-26 16:58 | disposition short-term general hospital (02) | DRG 948 ==
LOC: 2 NORTH 22:14
PROVIDERS: Clinical Nurse Specialist Family Health; ADMITTING PHYSICIAN Internal Medicine; ATTENDING PHYSICIAN Internal Medicine; CONSULT PHYSICIAN Internal Medicine Hematology & Oncology; EMERGENCY PHYSICIAN Emergency Medicine; FAMILY PHYSICIAN Family Medicine
DX: G89.3 Neoplasm related pain (acute) (chronic) (principal); C79.51 Secondary malignant neoplasm of bone; R51.9 Headache, unspecified; H53.2 Diplopia; G93.9 Disorder of brain, unspecified; C61 Malignant neoplasm of prostate; F17.200 Nicotine dependence, unspecified, uncomplicated; E11.42 Type 2 diabetes mellitus with diabetic polyneuropathy; E11.649 Type 2 diabetes mellitus with hypoglycemia without coma; I10 Essential (primary) hypertension; R47.1 Dysarthria and anarthria; E53.8 Deficiency of other specified B group vitamins; R47.81 Slurred speech; D64.9 Anemia, unspecified; R26.2 Difficulty in walking, not elsewhere classified; F10.20 Alcohol dependence, uncomplicated; Z87.442 Personal history of urinary calculi; Z92.3 Personal history of irradiation; Z79.01 Long term (current) use of anticoagulants; Z86.711 Personal history of pulmonary embolism; Z87.820 Personal history of traumatic brain injury; Z88.2 Allergy status to sulfonamides; Z79.84 Long term (current) use of oral hypoglycemic drugs; Z80.3 Family history of malignant neoplasm of breast
CPT/HCPCS: 80048; 80053; 80306; 80307; 81003; 81015; 82010; 82077; 82962; 82977; 83036; 83735; 84100; 85025; 86803; 96374; 96375; 96376; 97163; 97167; 99285